=== PATIENT | female | born 1950 | race Two or more races ===

== ENCOUNTER 2023-01-17 08:21 | Outpatient (CLI) | payer OTHER | END 2023-01-17 08:24 | disposition home or self-care (01) | LOC: SONOGRAMA 08:21 | PROVIDERS: ATTEND Pathology Anatomic Pathology & Clinical Pathology | DX: D34 Benign neoplasm of thyroid gland (principal); E07.9 Disorder of thyroid, unspecified; E04.1 Nontoxic single thyroid nodule; E04.9 Nontoxic goiter, unspecified ==